=== PATIENT | female | born 1995 | race Caucasian/White ===

== ENCOUNTER 2016-10-17 12:56 | Emergency (ER) | payer MEDICAID ==
[~2016-10-17] VITALS: Ht 167.6 cm; Wt 66.0 kg
[~2016-10-17 12:56] MED LIST: DOCU100C24 PO; MECL-76 PO; PREN1TAB79 PO
[2016-10-17 12:59] VITALS: BP 114/78
== END 2016-10-17 14:14 ==
LOC: ED 14:00
DX: S00.03XA Contusion of scalp, initial encounter (principal); S06.0X0A Concussion without loss of consciousness, initial encounter; X58.XXXA Exposure to other specified factors, initial encounter; Y93.89 Activity, other specified; Y92.89 Other specified places as the place of occurrence of the external cause; Y99.8 Other external cause status
CPT/HCPCS: 99283